=== PATIENT | female | born 1980 | race Caucasian/White ===

== ENCOUNTER 2018-03-17 08:30 | Day surgery (SDC) | payer OTHER ==
[~2018-03-17 08:30] MED LIST: Lactated Ringers 1,000 ML IV SCH; Sodium Chloride 0.9% 10 ML Syringe FLUSH PRN; Sodium Chloride 0.9% 2.5 ML Syringe FLUSH PRN; ceFAZolin 2 GM in Premix Bag 1 BAG IV ONE
[2018-03-18] MEDS ORDERED: Fluorescein 5 ML Vial ONE (08:30)
[2018-03-18] MEDS ORDERED: Scopolamine 1.5 MG Transdermal Patch TRDERM PRN (12:12)
--- NOTE | 2018-03-18 12:15 | PCM.PREANE ---
Preanesthetic Assessment - Anesthesia/Transfusion/Family Hx Anesthesia History: Prior Anesthesia Without Reaction Family History of Anesthesia Reaction: No Transfusion History: No Prior Transfusion(s) Intubation History: Unknown - Review of Systems General: No Symptoms Pulmonary: No Symptoms Cardiovascular: No Symptoms Gastrointestinal: No Symptoms Neurological: No Symptoms Other: Reports: None - Physical Assessment Height: 1.63 m Weight: 82.1 kg ASA Class: 2 Mental Status: Alert & Oriented x3 Airway Class: Mallampati = 2 Dentition: Reports: Normal Dentition Thyro-Mental Finger Breadths: 3 Mouth Opening Finger Breadths: 3 ROM/Head Extension: Full Lungs: Clear to Auscultation, Normal Respiratory Effort Cardiovascular: Regular Rate, Regular Rhythm - Lab Values: Laboratory Last Values WBC 8.23 K/uL (4.0-11.0) 03/17/18 09:50 RBC 4.95 M/uL (4.30-5.90) 03/17/18 09:50 Hgb 14.8 g/dL (12.0-16.0) 03/17/18 09:50 Hct 42.1 % (36.0-46.0) 03/17/18 09:50 MCV 85.1 fL (80.0-98.0) 03/17/18 09:50 MCH 29.9 pg (27.0-32.0) 03/17/18 09:50 MCHC 35.2 g/dL (31.0-37.0) 03/17/18 09:50 RDW Std Deviation 42.1 fl (28.0-62.0) 03/17/18 09:50 RDW Coeff of Mckayla 17 % (11.0-15.0) H 03/17/18 09:50 Plt Count 254 K/uL (150-400) 03/17/18 09:50 MPV 9.40 fL (7.40-12.00) 03/17/18 09:50 Nucleated RBC % 0.0 /100WBC 03/17/18 09:50 Nucleated RBCs # 0 K/uL 03/17/18 09:50 HCG, Qual NEGATIVE (NEG) 03/17/18 09:50 Blood Type O POSITIVE 03/17/18 09:50 Antibody Screen NEGATIVE 03/17/18 09:50 - Allergies Allergies/Adverse Reactions: Allergies Allergy/AdvReac Type Severity Reaction Status Date / Time No Known Allergies Allergy Verified 03/15/18 08:32 - Blood Blood Available: No - Anesthesia Plan Pre-Op Medication Ordered: None - Acknowledgements Anesthesia Type Planned: General Anesthesia Pt an Appropriate Candidate for the Planned Anesthesia: Yes Alternatives and Risks of Anesthesia Discussed w Pt/Guardian: Yes Pt/Guardian Understands and Agrees with Anesthesia Plan: Yes PreAnesthesia Questionnaire HEENT History: Reports: Other (See Below) Other HEENT History: wears glasses Respiratory History: Reports: Asthma, COPD (moderate) Genitourinary History: Reports: None 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 History: Reports: Dysfunctional Uterine Bleeding Musculoskeletal History: Reports: Fracture, Other (See Below) (h/o back and neck pain - OK now) Other Musculoskeletal History: hx fx hand Neurological History: Reports: Migraines Endocrine/Metabolic History: Reports: Obesity/BMI 30+, Other (See Below) Other Endocrine/Metabolic History: Recent blood work indicated hypothyroid possibly, not treating yet-01/13/18 Hematologic History: Reports: Anemia Dermatologic History: Reports: Other (See Below) Other Dermatologic History: dermatitis - Past Surgical History Head Surgeries/Procedures: Reports: None Female Surgical History: Reports: Tubal Ligation - SUBSTANCE USE Smoking Status *Q: Former Smoker (quit a month ago) Tobacco Use Within Last Twelve Months: Cigarettes Recreational Drug Use History: No - HOME MEDS Home Medications: Home Meds Aspirin/Acetaminophen/Caffeine [Migraine Relief Caplet] 1 tab PO ASDIRECTED PRN 03/15/18 [History] Ferrous Sulfate [Iron] 325 mg PO TID 03/15/18 [History] Triamcinolone Acetonide [Triamcinolone Acetonide 0.1% Crm] 1 applic TOP ASDIRECTED PRN 03/15/18 [History] Umeclidinium Brm/Vilanterol Tr [Anoro Ellipta 62.5-25 MCG] 2 puff INH DAILY 01/25 [History] - CURRENT (IN HOUSE) MEDS Current Meds: Current Medications Lactated Ringer's (Ringers, Lactated) 1,000 mls @ 125 mls/hr IV ASDIRECTED [place] Sodium Chloride (Saline Flush) 10 ml FLUSH ASDIRECTED PRN PRN Reason: Keep Vein Open Sodium Chloride (Saline Flush) 2.5 ml FLUSH ASDIRECTED PRN PRN Reason: Keep Vein Open Discontinued Medications Fluorescein Sodium (Ak-Fluor) Confirm Administered Dose 5 ml .ROUTE .STK-MED ONE Stop: 03/18/18 08:31 Cefazolin Sodium/Dextrose 2 gm (/ Premix) 50 mls @ 100 mls/hr IV ONETIME ONE Stop: 03/17/18 08:59
[2018-03-18] MEDS ORDERED: fentaNYL 100 MCG/2 ML SDV ONE (13:05)
[2018-03-18] MEDS ORDERED: Midazolam 1 MG/ML 2 ML SDV ONE (13:05)
[2018-03-18] MEDS ORDERED: Propofol 200 MG/20 ML SDV ONE (13:06)
[2018-03-18] MEDS ORDERED: Ondansetron 4 MG/2 ML SDV ONE (13:06)
[2018-03-18] MEDS ORDERED: Ketorolac 30 MG/ML SDV ONE (13:06)
[2018-03-18] MEDS ORDERED: Dexamethasone 4 MG/ML 5 ML MDV ONE (13:26)
[2018-03-18] MEDS ORDERED: Rocuronium 10 MG/ML 10 ML Syringe ONE (13:26)
[2018-03-18] MEDS ORDERED: Ondansetron 4 MG/2 ML SDV IVPUSH PRN (14:49)
[2018-03-18] MEDS ORDERED: Morphine 4 MG/ML Syringe IVPUSH PRN (14:49)
[2018-03-18] MEDS ORDERED: Ketorolac 30 MG/ML SDV IVPUSH PRN (14:49)
[2018-03-18] MEDS ORDERED: Promethazine 25 MG/ML SDV IM PRN (14:49)
[2018-03-18] MEDS ORDERED: Ketorolac 30 MG/ML SDV IVPUSH ONE (14:49)
[2018-03-18] MEDS ORDERED: Acetaminophen/oxyCODONE 325-5 MG Tab PO PRN (14:49)
--- NOTE | 2018-03-18 14:53 | PCM.OPNOTE ---
- General Post-Op/Procedure Note Date of Surgery/Procedure: 03/18/18 Operative Procedure(s): TVH, TVT cysto Pre Op Diagnosis: DUB,ARELY Post-Op Diagnosis: Same Anesthesia Technique: General LMA Primary Surgeon: Juan Pablo Anthony EBL in mLs: 100 Complications: None Condition: Good
[2018-03-18] MEDS ORDERED: fentaNYL 100 MCG/2 ML SDV IVPUSH PRN (15:04)
[2018-03-18] MEDS ORDERED: Midazolam 1 MG/ML 2 ML SDV IVPUSH ONE (15:05)
[2018-03-18] MEDS: HYDROmorphone 2 MG/ML SDV IVPUSH ONE ×2 (15:30→15:36)
--- NOTE | 2018-03-18 15:42 | PCM.POSTAN ---
POST ANESTHESIA ASSESSMENT - MENTAL STATUS Mental Status: Alert, Oriented - RESPIRATORY Respiratory Status: Respiratory Rate WNL, Airway Patent, O2 Saturation Stable - CARDIOVASCULAR CV Status: Pulse Rate WNL, Blood Pressure Stable - GASTROINTESTINAL GI Status: No Symptoms - POST OP HYDRATION Hydration Status: Adequate & Stable
--- NOTE | 2018-03-18 17:13 | PCM48HPAN ---
Post Anesthesia Note - EVALUATION WITHIN 48HRS OF ANESTHETIC Vital Signs in Normal Range: Yes Patient Participated in Evaluation: Yes Respiratory Function Stable: Yes Airway Patent: Yes Cardiovascular Function Stable: Yes Hydration Status Stable: Yes Pain Control Satisfactory: Yes Nausea and Vomiting Control Satisfactory: Yes Mental Status Recovered: Yes Resp Rate: 18
[2018-03-18] MEDS: Acetaminophen/oxyCODONE 325-5 MG Tab PO PRN ×2 (17:30→23:02)
--- NOTE | 2018-03-18 20:25 | OR ---
SURGEON: Juan Pablo Anthony MD DATE OF PROCEDURE: PREOPERATIVE DIAGNOSES: 1. Menometrorrhagia. 2. Stress urinary incontinence. POSTOPERATIVE DIAGNOSES: 1. Menometrorrhagia. 2. Stress urinary incontinence. OPERATIONS PERFORMED: Total vaginal hysterectomy, tension-free Solyx and cystoscopy. TRAINING SYSTEMS OFFICER: OR tech. ANESTHESIA: General endotracheal intubation, Dr. Jones. ESTIMATED BLOOD LOSS: Less than 120 mL. COMPLICATIONS: None. FINDINGS: The uterus is 8 weeks size, abnormal urethrovesical angle. INDICATION FOR SURGERY: [place] referred to the admit note. PROCEDURE IN DETAIL: The patient was brought to the OR, properly identified and after adequate level of anesthesia, the patient placed in lithotomy position, prepped and draped in sterile fashion as usual. A short-weighted speculum placed in the vagina. Straight catheter was used to empty the bladder. Then single-tooth tenaculum was applied to the cervix. The cervix was pulled outward and using electrocautery, circular incision in the vaginal mucosa was done. The posterior cul-de-sac was entered posteriorly with the Brown scissors. The peritoneum and the vagina tacked posteriorly with 2-0 Vicryl and the short weighted speculum replaced with extended long weighted speculum. The uterosacral ligament identified from both sides, clamped with a curved Zeppelin, transected, and suture ligated with 2-0 Vicryl pop-off. The same thing was done with the cardinal ligament and then the cervicovesical space was entered and the bladder retracted away from the operative field. The anterior cul-de-sac was entered anteriorly and the broad ligament clamped with a curved Zeppelin, transected, and suture ligated with 2-0 Vicryl pop-off. The uterine vessel suture ligated at this step. The uterus delivered posteriorly and the superior pedicle was clamped with 90 degree Zeppelin, transected, and uterus removed. The superior pedicle was tied twice with a free tie on both sides. Inspection of the operative field shows no oozing, no bleeding. Then the uterosacral ligament and cardinal ligament anchored to the vagina at 3 and 9 o'clock for added vaginal support, and we proceeded to close the vaginal cuff with 2-0 Vicryl interrupted [id number] sutures. After that, attention paid to the anterior vaginal wall and it was an inch and a half adhesed to the urethra, was infiltrated with copious amount of normal saline and incised with electrocautery and dissected laterally in a tunneling fashion making a tunnel for the Solyx TVT. The Solyx TVT placed into place with a due amount of tension to elevate the urethrovesical angle. Once that was done, we closed the vaginal cuff with 2-0 Vicryl in continuous interlocking for hemostasis. While we were doing the TVT, we asked the Anesthesia people to give the patient fluorescein. Then cystoscopy was performed. The bladder was intact. Both ureteric orifices were seen with the dye coming out from both of them. Thus the patency of both ureters verified. Satisfied with these findings, the procedure ended. Instrument and sponge count was correct x2. The patient went to recovery room in stable general condition. CARLO BROOKS /[id number]
[2018-03-19] MEDS ORDERED: Acetaminophen/oxyCODONE 325-5 MG Tab ONE (04:35)
[2018-03-19] MEDS: Acetaminophen/oxyCODONE 325-5 MG Tab PO PRN (04:38)
[2018-03-19 06:30] LABS: CHLORIDE,CL 104 mmol/L (98-107); SODIUM,NA 137 mmol/L (136-145)
--- NOTE | 2018-03-19 08:25 | PCM.PN ---
- General Info Date of Service: 03/19/18 Functional Status: Reports: Pain Controlled - Review of Systems General: Reports: No Symptoms HEENT: Reports: No Symptoms Pulmonary: Reports: No Symptoms Cardiovascular: Reports: No Symptoms Gastrointestinal: Reports: No Symptoms Genitourinary: Reports: No Symptoms Musculoskeletal: Reports: No Symptoms Skin: Reports: No Symptoms Neurological: Reports: No Symptoms Psychiatric: Reports: No Symptoms - Patient Data Vitals - Most Recent: Last Vital Signs Temp 36.1 C 03/19/18 08:00 Pulse 96 03/19/18 08:00 Resp 16 03/19/18 08:00 BP 123/58 L 03/19/18 08:00 Pulse Ox 96 03/19/18 08:00 Weight - Most Recent: 82.1 kg I&O - Last 24 Hours: Intake & Output 03/18/18 03/19/18 03/19/18 22:59 06:59 14:59 Intake Total 820 Output Total 1270 Balance -450 Lab Results Last 24 Hours: Laboratory Results - last 24 hr 03/19/18 03/19/18 Range/Units 05:30 05:30 WBC 14.55 H (4.0-11.0) K/uL RBC 4.37 (4.30-5.90) M/uL Hgb 12.8 (12.0-16.0) g/dL Hct 37.5 (36.0-46.0) % MCV 85.8 (80.0-98.0) fL MCH 29.3 (27.0-32.0) pg MCHC 34.1 (31.0-37.0) g/dL RDW Std Deviation 40.9 (28.0-62.0) fl RDW Coeff of Mckayla 16 H (11.0-15.0) % Plt Count 260 (150-400) K/uL MPV 9.60 (7.40-12.00) fL Neut % (Auto) 84.5 H (48.0-80.0) % Lymph % (Auto) 10.0 L (16.0-40.0) % [place] % (Auto) 5.3 (0.0-15.0) % Eos % (Auto) 0.1 (0.0-7.0) % Baso % (Auto) 0.1 (0.0-1.5) % Neut # (Auto) 12.3 H (1.4-5.7) K/uL Lymph # (Auto) 1.5 (0.6-2.4) K/uL [place] # (Auto) 0.8 (0.0-0.8) K/uL Eos # (Auto) 0.0 (0.0-0.7) K/uL Baso # (Auto) 0.0 (0.0-0.1) K/uL Nucleated RBC % 0.0 /100WBC Nucleated RBCs # 0 K/uL Sodium 137 (136-145) mmol/L Potassium 4.1 (3.5-5.1) mmol/L Chloride 104 (98-107) mmol/L Carbon Dioxide 25.3 (21.0-32.0) mmol/L BUN 12 (7.0-18.0) mg/dL Creatinine 0.9 (0.6-1.0) mg/dL Est Cr Clr Drug Dosing 73.19 mL/min Estimated GFR (MDRD) > 60.0 ml/min Glucose 136 H (74-106) mg/dL Calcium 9.0 (8.5-10.1) mg/dL Med Orders - Current: Current Medications Fentanyl (Sublimaze) 50 mcg IVPUSH Q5M PRN PRN Reason: Pain (severe 7-10) Stop: 03/19/18 15:05 Lactated Ringer's (Ringers, Lactated) 1,000 mls @ 125 mls/hr IV ASDIRECTED [facility] Last Admin: 03/18/18 11:20 Dose: 125 mls/hr Ketorolac Tromethamine (Toradol) 30 mg IVPUSH Q6H PRN PRN Reason: Pain (severe 7-10) Stop: 03/23/18 14:49 Morphine Sulfate (Morphine) 4 mg IVPUSH Q2H PRN PRN Reason: Pain (severe 7-10) Ondansetron HCl (Zofran) 4 mg IVPUSH Q6H PRN PRN Reason: Nausea/Vomiting Oxycodone/Acetaminophen (Percocet 325-5 Mg) 1 tab PO Q4H PRN PRN Reason: Pain (moderate 4-6) Oxycodone/Acetaminophen (Percocet 325-5 Mg) 2 tab PO Q4H PRN PRN Reason: Pain (moderate 4-6) Last Admin: 03/19/18 04:38 Dose: 2 tab Promethazine HCl (Phenergan) 25 mg IM Q6H PRN PRN Reason: Nausea/Vomiting Scopolamine (Transderm-Scop) 1.5 mg TRDERM Q72H PRN PRN Reason: Nausea Last Admin: 03/18/18 12:24 Dose: 1.5 mg Sodium Chloride (Saline Flush) 10 ml FLUSH ASDIRECTED PRN PRN Reason: Keep Vein Open Sodium Chloride (Saline Flush) 2.5 ml FLUSH ASDIRECTED PRN PRN Reason: Keep Vein Open Discontinued Medications Dexamethasone (Dexamethasone) Confirm Administered Dose 20 mg .ROUTE .STK-MED ONE Stop: 03/18/18 13:27 Fentanyl (Sublimaze) Confirm Administered Dose 100 mcg .ROUTE .STK-MED ONE Stop: 03/18/18 13:06 Fluorescein Sodium (Ak-Fluor) Confirm Administered Dose 5 ml .ROUTE .STK-MED ONE Stop: 03/18/18 08:31 Hydromorphone HCl (Dilaudid) 2 mg IVPUSH ONETIME ONE Stop: 03/18/18 15:05 Last Admin: 03/18/18 15:36 Dose: 1 mg Cefazolin Sodium/Dextrose 2 gm (/ Premix) 50 mls @ 100 mls/hr IV ONETIME ONE Stop: 03/17/18 08:59 Lidocaine HCl (Xylocaine-Mpf 1%) Confirm Administered Dose 5 mls @ as directed .ROUTE .STK-MED ONE Stop: 03/18/18 13:07 Cefazolin Sodium/Dextrose (Ancef) Confirm Administered Dose 100 mls @ as directed .ROUTE .STK-MED ONE Stop: 03/18/18 14:04 Ketorolac Tromethamine (Toradol) Confirm Administered Dose 30 mg .ROUTE .STK- MED ONE Stop: 03/18/18 13:07 Ketorolac Tromethamine (Toradol) 30 mg IVPUSH ONETIME ONE Stop: 03/18/18 14:50 Last Admin: 03/18/18 21:19 Dose: Not Given Midazolam HCl (Versed 1 Mg/Ml) Confirm Administered Dose 2 mg .ROUTE .STK-MED ONE Stop: 03/18/18 13:06 Midazolam HCl (Versed 1 Mg/Ml) 2 mg IVPUSH ONETIME ONE Stop: 03/18/18 15:06 Last Admin: 03/18/18 15:11 Dose: 2 mg Ondansetron HCl (Zofran) Confirm Administered Dose 4 mg .ROUTE .STK-MED ONE Stop: 03/18/18 13:07 Propofol (Diprivan 20 Ml) Confirm Administered Dose 200 mg .ROUTE .STK-MED ONE Stop: 03/18/18 13:07 Rocuronium [place] (Zemuron) Confirm Administered Dose 100 mg .ROUTE .STK-MED ONE Stop: 03/18/18 13:27 - Exam General: Alert, Oriented HEENT: Pupils Equal, Pupils Reactive, EOMI, Mucous Membr. Moist/[place] Neck: Supple Lungs: Clear to Auscultation, Normal Respiratory Effort Cardiovascular: Regular Rate, Regular Rhythm GI/Abdominal Exam: Normal Bowel Sounds, Soft, Non-Tender, No Organomegaly, No Distention, No Abnormal Bruit, No Mass, Pelvis Stable (Female) Exam: Normal External Exam, Normal Speculum Exam, Normal Bimanual Exam Back Exam: Normal Inspection, Full Range of Motion Extremities: Normal Inspection, Normal Range of Motion, Non-Tender, No Pedal Edema, Normal Capillary Refill Skin: Warm, Dry, Intact Wound/Incisions: Healing Well Neurological: No New Focal Deficit Psy/Mental Status: Alert, Normal Affect, Normal Mood - Problem List Review Problem List Initiated/Reviewed/Updated: Yes - My Orders Last 24 Hours: My Active Orders 03/18/18 14:49 Patient Status [ADT] Routine Notify Provider Vital Signs [RC] ASDIRECTED Oxygen Therapy [RC] ASDIRECTED RT Incentive Spirometry [RC] Q2HWA Up With Assistance [RC] PER UNIT ROUTINE Up ad Tamia [RC] PER UNIT ROUTINE Urinary Catheter Removal [RC] Per Unit Routine Vital Signs [RC] PER UNIT ROUTINE Acetaminophen/oxyCODONE [Percocet 325-5 MG] 1 tab PO Q4H PRN Acetaminophen/oxyCODONE [Percocet 325-5 MG] 2 tab PO Q4H PRN Ketorolac [Toradol] 30 mg IVPUSH Q6H PRN Morphine 4 mg IVPUSH Q2H PRN Ondansetron [Zofran] 4 mg IVPUSH Q6H PRN Promethazine [Phenergan] 25 mg IM Q6H PRN Peripheral IV Discontinue [OM.PC] Routine Sequential Compression Device [OM.PC] Per Unit Routine Resuscitation Status Routine 03/18/18 Dinner Regular Diet [DIET] - Assessment Assessment:: Status post vaginal hysterectomy and TVT. Postoperative day #1 the patient is voiding without any problem she is moving on a regular diet no vaginal bleeding minimum amount of pain lab work is normal - Plan Plan:: Sending her home today with a post hysterectomy instruction with a prescription of Percocet 7.5/325 for postoperative pain
== END 2018-03-19 09:00 | disposition home or self-care (01) ==
LOC: MW.SDS 08:30 → MW.MS 03-18 16:12 → MW.SDS 03-19 09:00
PROVIDERS: ATTEND Obstetrics & Gynecology
DX: N92.1 Excessive and frequent menstruation with irregular cycle (principal); N39.3 Stress incontinence (female) (male); D64.9 Anemia, unspecified; J44.9 Chronic obstructive pulmonary disease, unspecified; Z79.82 Long term (current) use of aspirin; Z79.899 Other long term (current) drug therapy
CPT/HCPCS: 36415; 57288; 58260; 80048; 84703; 85025; 85027; 86850; 86900; 86901; A9270; C1771; 88307; J0690; J1100; J1170; J1885; J2250; J2405; J2704; J3010; J7120

== ENCOUNTER 2018-05-15 20:49 | Emergency (ER) | payer OTHER ==
[2018-05-15] MEDS ORDERED: Lidocaine 2% Viscous Solution 15 ML Cup PO ONE (21:09)
[2018-05-15] MEDS ORDERED: Benzocaine 20% Topical Spray UD MUCMEM ONE (21:09)
--- NOTE | 2018-05-15 21:16 | EDM.PDOC ---
ED HPI GENERAL MEDICAL PROBLEM - General Chief Complaint: ENT Problem Stated Complaint: TOOTH ACHE Time Seen by Provider: 05/15/18 20:58 - History of Present Illness INITIAL COMMENTS - FREE TEXT/NARRATIVE: HISTORY AND PHYSICAL: History of present illness: The patient is a 38-year-old female with a history of problems with the left tooth #12 and says it has been aggravated over the last 3 weeks but has worsened over the last several days with pain radiating to her inferior orbital area and her ear. She's had no fevers or chills. Patient has not had any swollen glands and is able to eat. She has been using [id number] ibuprofen. She plans on calling the dentist on Thursday morning. Review of systems: As per history of present illness and below otherwise all systems reviewed and negative. Past medical history: As per history of present illness and as reviewed below otherwise noncontributory. Surgical history: As per history of present illness and as reviewed below otherwise noncontributory. Social history: No reported history of drug or alcohol abuse. Family history: As per history of present illness and as reviewed below otherwise noncontributory. Physical exam: General: Well-developed well-nourished female who is nontoxic. She speaks clearly and easily. There is no gross evidence of facial swelling seen on the left side. HEENT: Atraumatic, normocephalic, pupils reactive, negative for conjunctival pallor or scleral icterus, mucous membranes moist, throat clear, neck supple, nontender, trachea midline. There is no cervical adenopathy or nuchal rigidity. There are several areas of dental decay the most noteworthy and discomforting is tooth #12 where there is a visible cavity. There is no gum swelling in this area or facial swelling. There is tenderness to palpation. Lungs: Clear to auscultation, breath sounds equal bilaterally, chest nontender. Heart: S1S2, regular rate and rhythm no overt murmurs Abdomen: Soft, nondistended, nontender. NABS Pelvis: deferred Genitourinary: Deferred. Rectal: Deferred. Extremities: Atraumatic, negative for cords or calf pain. Neurovascular unremarkable. Neuro: Awake, alert, oriented. Cranial nerves II through XII unremarkable. Cerebellum unremarkable. Motor and sensory unremarkable throughout. Exam nonfocal. Diagnostics: [] Therapeutics: Dental balls Amoxicillin, a few [place] tablets, and referral list for dentist Impression: Dental pain due to caries Definitive disposition and diagnosis as appropriate pending reevaluation and review of above. Tooth/Teeth Pain Score (Numeric/FACES): 10 - Related Data Allergies Allergy/AdvReac Type Severity Reaction Status Date / Time No Known Allergies Allergy Verified 05/15/18 21:03 Home Meds: Home Meds Triamcinolone Acetonide [Triamcinolone Acetonide 0.1% Crm] 1 applic TOP ASDIRECTED PRN 03/15/18 [History] Umeclidinium Brm/Vilanterol Tr [Anoro Ellipta 62.5-25 MCG] 2 puff INH DAILY 01/25 [History] Past Medical History HEENT History: Reports: Other (See Below) Other HEENT History: wears glasses Respiratory History: Reports: Asthma, COPD Genitourinary History: Reports: None [employer] History: Reports: Dysfunctional Uterine Bleeding Musculoskeletal History: Reports: Fracture, Other (See Below) Other Musculoskeletal History: hx fx hand Neurological History: Reports: Migraines Endocrine/Metabolic History: Reports: Obesity/BMI 30+, Other (See Below) Other Endocrine/Metabolic History: Recent blood work indicated hypothyroid possibly, not treating yet-01/13/18 Hematologic History: Reports: Anemia Dermatologic History: Reports: Other (See Below) Other Dermatologic History: dermatitis - Infectious Disease History Infectious Disease History: Reports: None - Past Surgical History Head Surgeries/Procedures: Reports: None Female Surgical History: Reports: Hysterectomy, Tubal Ligation Other Female Surgeries/Procedures: Tubes tied Social & Family History - Family History Family Medical History: Noncontributory - Tobacco Use Smoking Status *Q: Former Smoker Used Tobacco, but Quit: Yes Month/Year Tobacco Last Used: March, - Caffeine Use Caffeine Use: Reports: Coffee, Soda, Tea - Recreational Drug Use Recreational Drug Use: No ED ROS GENERAL - Review of Systems Review Of Systems: ROS reveals no pertinent complaints other than HPI. ED EXAM, GENERAL - Physical Exam Exam: See Below (See dictation) Course - Vital Signs Last Recorded V/S: Last Vital Signs Temp 35.6 C 05/15/18 20:59 Pulse 73 05/15/18 20:59 Resp 16 05/15/18 20:59 BP 131/78 05/15/18 20:59 Pulse Ox 99 05/15/18 20:59 - Orders/Labs/Meds Meds: Medications Discontinued Medications Generic Name Dose Route Start Last Admin Trade Name Maco PRN Reason Stop Dose Admin Benzocaine 2 each 05/15/18 21:09 Hurricaine One 20% MUCMEM 05/15/18 21:10 ONETIME ONE Lidocaine HCl 15 ml 05/15/18 21:09 Xylocaine 2% Viscous PO 05/15/18 21:10 ONETIME ONE Departure - Departure Time of Disposition: 21:17 Disposition: Home, Self-Care 01 Condition: Good Clinical Impression: Pain due to dental caries - Discharge Information Referrals: PCP,None [Primary Care Provider] - Additional Instructions: The following information is given to patients seen in the emergency department who are being discharged to home. This information is to outline your options for follow-up care. We provide all patients seen in our emergency department with a follow-up referral. The need for follow-up, as well as the timing and circumstances, are variable depending upon the specifics of your emergency department visit. If you don't have a primary care physician on staff, we will provide you with a referral. We always advise you to contact your personal physician following an emergency department visit to inform them of the circumstance of the visit and for follow-up with them and/or the need for any referrals to a consulting specialist. The emergency department will also refer you to a specialist when appropriate. This referral assures that you have the opportunity for followup care with a specialist. All of these measure are taken in an effort to provide you with optimal care, which includes your followup. Under all circumstances we always encourage you to contact your private physician who remains a resource for coordinating your care. When calling for followup care, please make the office aware that this follow-up is from your recent emergency room visit. If for any reason you are refused follow-up, please contact the [facility] emergency department at and ask to speak to the emergency department charge nurse. [facility] Primary care- Internal Medicine and Family [address] [address] Please use dental balls you have been given and shown in the ED as needed to the area. He may continue [id number] ibuprofen and add the [place] you have been prescribed as needed. Please only take this pain medication at home as it is much stronger. Take the antibiotics until they are finished and called the dentist on Thursday morning to schedule a definitive appointment for care and evaluation. Return to ER as needed and as discussed.
== END 2018-05-15 21:25 | disposition home or self-care (01) ==
LOC: MW.ED 20:49
DX: K02.9 Dental caries, unspecified (principal); E66.9 Obesity, unspecified; Z87.891 Personal history of nicotine dependence
CPT/HCPCS: 99283; A9270; 99282

== ENCOUNTER 2018-10-06 19:55 | Emergency (ER) | payer OTHER ==
--- NOTE | 2018-10-06 20:25 | EDM.PDOC ---
ED HPI GENERAL MEDICAL PROBLEM - General Chief Complaint: Back Pain or Injury Stated Complaint: FELL AND HURT BACK Time Seen by Provider: 10/06/18 20:21 Source of Information: Reports: Patient History Limitations: Reports: No Limitations - History of Present Illness INITIAL COMMENTS - FREE TEXT/NARRATIVE: HISTORY AND PHYSICAL: History of present illness: Patient is a 38-year-old female here with complaint of back injury. She states at about 5pm this afternoon she was taking her dogs out to walk when she slipped landing on her back and hitting the step. She denies head injury or LOC. She denies upper or lower extremity pain, numbness or tingling. She denies loss of bowel or bladder control, lower extremity weakness or foot drop. Review of systems: As per history of present illness and below otherwise all systems reviewed and negative. Past medical history: As per history of present illness and as reviewed below otherwise noncontributory. Surgical history: As per history of present illness and as reviewed below otherwise noncontributory. Social history: No reported history of drug or alcohol abuse. Family history: As per history of present illness and as reviewed below otherwise noncontributory. Physical exam: General: Patient sitting comfortably in no acute distress and nontoxic appearing HEENT: Atraumatic, normocephalic, pupils reactive, negative for conjunctival pallor or scleral icterus, mucous membranes moist, throat clear, neck supple, nontender, trachea midline. No meningeal signs. Lungs: Clear to auscultation, breath sounds equal bilaterally, chest nontender. Heart: S1S2, regular, negative for clicks, rubs, or overt murmur. Abdomen: Soft, nondistended, nontender. Negative for masses or hepatosplenomegaly. Negative for costovertebral tenderness. Pelvis: Stable nontender. Genitourinary: Deferred. Rectal: Deferred. Spine: Pain to palpation of thoracic and lumbar spine and left paraspinals. Extremities: Atraumatic, negative for cords or calf pain. Neurovascular unremarkable. Neuro: Awake, alert, oriented. Cranial nerves II through XII unremarkable. Cerebellum unremarkable. Motor and sensory unremarkable throughout. Exam nonfocal. Notes: Diagnostics: x-ray thoracolumbar spine Therapeutics: Toradol 60mg IM Prescriptions: Tramadol (#15) Flexeril (#15) Impression: Thoracolumbar back injury Plan: 1. Heat or ice and tylenol or motrin as needed. You may take tramadol and flexeril as needed, do not take while driving as they may make you drowsy. 2. Follow up with primary care provider 3. Return to ED as needed as discussed Definitive disposition and diagnosis as appropriate pending reevaluation and review of above. Middle Back Pain Score (Numeric/FACES): 10 - Related Data Allergies Allergy/AdvReac Type Severity Reaction Status Date / Time No Known Allergies Allergy Verified 10/06/18 20:17 Home Meds: Home Meds Umeclidinium Brm/Vilanterol Tr [Anoro Ellipta 62.5-25 MCG] 2 puff INH DAILY 01/25 [History] Past Medical History HEENT History: Reports: Other (See Below) Other HEENT History: wears glasses Respiratory History: Reports: Asthma, COPD Genitourinary History: Reports: None [place] [employer] [facility] History: Reports: Dysfunctional Uterine Bleeding Musculoskeletal History: Reports: Fracture, Other (See Below) Other Musculoskeletal History: hx fx hand Neurological History: Reports: Migraines Endocrine/Metabolic History: Reports: Obesity/BMI 30+, Other (See Below) Other Endocrine/Metabolic History: Recent blood work indicated hypothyroid possibly, not treating yet-01/13/18 Hematologic History: Reports: Anemia Dermatologic History: Reports: Other (See Below) Other Dermatologic History: dermatitis - Infectious Disease History Infectious Disease History: Reports: None - Past Surgical History Head Surgeries/Procedures: Reports: None Female Surgical History: Reports: Hysterectomy, Tubal Ligation Other Female Surgeries/Procedures: Tubes tied Social & Family History - Family History Family Medical History: Noncontributory - Tobacco Use Smoking Status *Q: Current Some Day Smoker Years of Tobacco use: 20 Packs/Tins Daily: 0.3 - Caffeine Use Caffeine Use: Reports: None - Recreational Drug Use Recreational Drug Use: No ED ROS GENERAL - Review of Systems Review Of Systems: ROS reveals no pertinent complaints other than HPI. ED EXAM,LOWER BACK PAIN/INJURY - Physical Exam Exam: See Below (see dictation) Course - Vital Signs Last Recorded V/S: Last Vital Signs Temp 96.6 F 10/06/18 20:14 Pulse 85 10/06/18 20:14 Resp 22 H 10/06/18 20:14 BP 120/74 10/06/18 20:14 Pulse Ox 98 10/06/18 20:14 - Orders/Labs/Meds Meds: Medications Discontinued Medications Generic Name Dose Route Start Last Admin Trade Name Maco PRN Reason Stop Dose Admin Ketorolac Tromethamine 60 mg 10/06/18 20:21 10/06/18 20:30 Toradol IM 10/06/18 20:22 60 mg ONETIME ONE Administration Departure - Departure Time of Disposition: 21:28 Disposition: Home, Self-Care 01 Condition: Good Clinical Impression: Thoracolumbar back pain - Discharge Information Referrals: Chico Zhong MD [Primary Care Provider] - Forms: ED Department Discharge Additional Instructions: The following information is given to patients seen in the emergency department who are being discharged to home. This information is to outline your options for follow-up care. We provide all patients seen in our emergency department with a follow-up referral. The need for follow-up, as well as the timing and circumstances, are variable depending upon the specifics of your emergency department visit. If you don't have a primary care physician on staff, we will provide you with a referral. We always advise you to contact your personal physician following an emergency department visit to inform them of the circumstance of the visit and for follow-up with them and/or the need for any referrals to a consulting specialist. The emergency department will also refer you to a specialist when appropriate. This referral assures that you have the opportunity for follow-up care with a specialist. All of these measure are taken in an effort to provide you with optimal care, which includes your follow-up. Under all circumstances we always encourage you to contact your private physician who remains a resource for coordinating your care. When calling for follow-up care, please make the office aware that this follow-up is from your recent emergency room visit. If for any reason you are refused follow-up, please contact the [facility] Emergency Department at and asked to speak to the emergency department charge nurse. [facility] [address] [place] [id number] 1. Heat or ice and tylenol or motrin as needed. You may take tramadol and flexeril as needed, do not take while driving as they may make you drowsy. 2. Follow up with primary care provider 3. Return to ED as needed as discussed
[2018-10-06] MEDS: Ketorolac 60 MG/2 ML SDV IM ONE (20:30)
--- NOTE | 2018-10-06 21:26 | CR ---
INDICATION: Injury, fall with pain TECHNIQUE: Thoracolumbar spine T8-L5 2 view COMPARISON: None FINDINGS: Bones: Alignment is normal. No fractures or significant bone lesions. Joints: Disc spaces and facets are unremarkable. Soft tissues: Unremarkable. IMPRESSION: Unremarkable thoracolumbar spine. No sign of acute injury. Dictated by Baldev Grande MD @ Oct 06 2018 9:23PM Signed by Dr. Baldev Grande @ Oct 06 2018 9:25PM
== END 2018-10-06 21:45 | disposition home or self-care (01) ==
LOC: MW.ED 19:55
DX: S29.9XXA Unspecified injury of thorax, initial encounter (principal); S39.92XA Unspecified injury of lower back, initial encounter; F17.210 Nicotine dependence, cigarettes, uncomplicated; Z79.899 Other long term (current) drug therapy; W01.0XXA Fall on same level from slipping, tripping and stumbling without subsequent striking against object, initial encounter
CPT/HCPCS: 72080; 96372; 99283; J1885